=== PATIENT | male | born 1965 | race Caucasian/White ===

== ENCOUNTER 2017-09-19 11:53 | Outpatient (CLI) | payer BC ==
[~2017-09-19] VITALS: Ht 182.9 cm; Wt 90.9 kg
--- NOTE | ~2017-09-19 | HEMODYNAMI ---
PATIENT:EZ SHAIKH MEDICAL RECORD: [id number] : 65 LOCATION:D.CAT ADMISSION DATE: 09/19/17 Generatedon:09/19/201714:40 Patient name: EZ SHAIKH Patient #: [id number] : 1965 Date of study: 09/19/2017 Page: Of Hemodynamic Procedure Report Patient Data Patient Demographics Procedure consent was obtained First Name: EZ Gender: Male Last Name: HAWA : 1965 Middle Initial: AYESHA Age: 52 year(s) Patient #: [id number] Race: SSN: [id number] Additional ID: [id number] Contact details [address]: [address] [place] [address] State: [place] City: [place] Zip code: [address] Admission Admission Data Admission Date: 09/19/2017 Admission Time: 11:53 Arrival Date: 09/19/2017 Arrival Time: 13:30 Admit Source: Other Insurance Payor: Private health insurance Height (in.): 73 BSA: 2.15 (m2) Height (cm.): 185.42 BMI: 26.39 (kg/m2) Weight (lbs.): 200 Weight (kg.): 90.72 Procedure Procedure Types Cath Procedure Diagnostic Procedure C [facility] w/Coronaries Sedation Charges Moderate Sedation up to 15 minutes Procedure Description Procedure Date Procedure Date: 09/19/2017 Procedure Start Time: 14:22 Procedure End Time: 14:39 Procedure Staff Name Function Mervat Pratt RT Monitor Ashley Talavera RT Scrub Blank Osman RN Nurse Ministerio Chavez MD Performing Physician Indication Angina Procedure Data Cath Procedure Fluoroscopy Diagnostic fluoroscopy Total fluoroscopy Time: 2.3 time: 2.3 min min Diagnostic fluoroscopy Total fluoroscopy dose: 561 dose: 561 mGy mGy Contrast Material Contrast Material Type Amount (ml) Isovue 300 77 Entry Location Entry Primary Successful Side Size Upsize Upsize Entry Closure Diggs ccessful Closure Location (Fr) 1 (Fr) 2 (Fr) Remarks Device Remarks Radial Right 6 Fr Mechanical TR band artery Short Compression Estimated blood loss: 10 ml Diagnostic catheters Device Type Used For End Catheter Placement DIAGNOSTIC Andrea 110cm Procedure 5Fr catheter ([id number]) Procedure Complications No complications Procedure Medications Medication Administration Route Dosage Oxygen NC 2 l/min Lidocaine 2% added to field 20 Heparin Flush Bag added to field 2 bags (1000units/500ml NS) 0.9% NaCl 100 ml/hr Radial Cocktail I.A. 1 syringe (Verapomil 2mg/Nitro 400mcg/Heparin 1500units) Versed I.V. 2 mg Fentanyl I.V. 100 mcg Versed I.V. 1 mg Fentanyl I.V. 50 mcg Versed I.V. 1 mg Fentanyl I.V. 50 mcg Hemodynamics Rest BSA: 2.15 (m2) O2 Consumption: Estimated: 251.78 (ml/min) O2 Consumption indexed : Estimated:117.11 (ml/min/m) Heart Rate: 65 (bpm) Pressure Samples Time Site Value (mmHg) Purpose Heart Use Rate(bpm) 14:27 LV 150/-16,8 Snapshot 78 Gradients Valve Time Site Site Mean SEP/DFP Peak To Heart Use 1 2 (mmHg) (sec/min) Peak Rate (mmHg) (bpm) Aortic 14:28 LV AO 106 Snapshots Pre Cath Intra NCS Post Cath Vital Signs Time Heart Resp SPO2 etCO2 NIBP (mmHg) Rhythm Pain Sedation Rate (ipm) (%) (mmHg) Status Level (bpm) 13:53:18 67 12 98 0 137/79(116) NSR 0 (11) 10(A) , No pain 13:57:24 68 18 97 0 124/84(103) NSR 0 (11) 10(A) , No pain 14:01:31 64 24 98 0 125/86(105) NSR 0 (11) 10(A) , No pain 14:05:41 71 16 98 0 118/80(105) NSR 0 (11) 10(A) , No pain 14:09:49 72 19 97 0 126/79(102) NSR 0 (11) 10(A) , No pain 14:13:59 69 16 96 0 113/79(94) NSR 0 (11) 10(A) , No pain 14:18:07 68 15 95 0 124/76(97) NSR 0 (11) 10(A) , No pain 14:22:17 71 19 99 37.1 108/75(95) NSR 0 (11) 9(A) , No pain 14:26:24 84 17 97 35.6 99/65(81) NSR 0 (11) 9(A) , No pain 14:30:26 70 18 95 40.1 116/70(88) NSR 0 (11) 9(A) , No pain 14:34:32 85 18 96 40.2 108/74(102) NSR 0 (11) 10(A) , No pain 14:38:34 78 17 99 36.4 117/81(99) NSR 0 (11) 10(A) , No pain Medications Time Medication Route Dose Verified Delivered Reason Notes Effectiveness by by 14:05:14 Lidocaine 2% added 20ml Ministerio Ministerio for local to vial Scott Chavez MD anesthetic field 14:05:19 Oxygen NC 2 l/min Ministerio Buffie used for Scott Osman RN procedure 14:05:22 Heparin Flush added 2 bags Ministerio Ministerio used for Bag to Scott Chavez MD procedure (1000units/500ml field NS) 14:05:28 0.9% NaCl 100 Ministerio Ministerio ml/hr Scott Chavez MD 14:16:06 Fentanyl I.V. 100 mcg Ministerio Buffie for sedation Scott Osman RN 14:16:56 Versed I.V. 2 mg Ministerio Buffie for sedation Scott Osamn RN 14:20:08 Versed I.V. 1 mg Ministerio Buffie for sedation Scott Osman RN 14:20:12 Fentanyl I.V. 50 mcg Ministerio Buffie for sedation Scott Osman RN 14:25:41 Radial Cocktail I.A. 1 Ministerio Ministerio for (Verapomil syringe Scott Chavez MD vasodilation 2mg/Nitro 400mcg/Heparin 1500units) 14:26:54 Versed I.V. 1 mg Ministerio Buffie for sedation Scott Osman RN 14:26:57 Fentanyl I.V. 50 mcg Ministerio Buffie for sedation Scott Osman RN Procedure Log Time Note 13:36:06 Diagnostic Cath Status : Elective 13:36:24 Indication : Angina 13:36:29 Mervat Pratt RT(R) sent for patient. Start room use. 13:36:32 Time tracking: Regular hours 13:36:36 Plan of Care:Hemodynamics will remain stable., Cardiac rhythm will remain stable., Comfort level will be maintained., Respiratory function will remain adequate., Patient/ family verbilizes understanding of procedure., Procedure tolerated without complication., Recovers from procedure without complications.. 13:36:54 Informed consent obtained and on chart 13:37:05 Patient Height : 73 inches 13:37:08 Patient Weight : 200 lbs 13:37:08 Admit Source: Other 13:37:10 Arrival Date: 09/19/2017 1:30:00 PM 13:37:18 Insurance Payor : Private health insurance 13:49:29 Patient received from Pre/Post Procedure Room to CCL 2 Alert and oriented. Tansferred to table in Supine position. 13:49:30 Warm blankets applied, and farheen hugger turned on for patient comfort. 13:49:31 Correct patient and procedure confirmed by team. 13:49:31 ECG and BP/O2 sat monitors applied to patient. 13:52:14 Vital chart was started 13:52:15 Baseline sample Acquired. 13:52:22 Rhythm: sinus rhythm 13:52:24 Full Disclosure recording started 13:52:28 H&P Date Dictated: 09/19/2017 Within 30 days and on chart., H&P Addendum completed by physician on day of procedure. (MUST COMPLETE FOR ALL OUTPATIENTS). 13:52:29 Pre-procedure instructions explained to patient. 13:52:29 Pre-op teaching completed and patient verbalized understanding. 13:52:30 Family in waiting room. 13:52:32 Patient NPO since Midnight. 13:52:34 Is the patient allergic to Iodine/contrast media? No. 13:52:35 Was the patient premedicated? No 13:52:36 Is patient on blood thinner?No 13:52:38 Patient diabetic? No. 13:52:40 Previous problem with sedation/anesthesia? No ? 13:52:43 Snore? Yes 13:52:44 Sleep apnea? No 13:52:46 Deviated septum? No 13:52:46 Opens mouth fully? Yes 13:52:47 Sticks out tongue? Yes 13:52:49 Airway obstruction? No ? 13:52:51 Dentures? No ? 13:52:55 Pre procedure: right dorsailis pedis pulse 2+ Normal; easily identifiable; not easily obliterated 13:52:58 Pre procedure: left dorsailis pedis pulse 2+ Normal; easily identifiable; not easily obliterated 13:53:01 Patient pain scale 0/10 ?. 13:53:07 IV patent on arrival in left antecubital with 0.9% NaCl at [facility]. 13:53:11 Lab results completed and on chart. 13:53:17 Right Radial & Right Groin area was prepped with chlora-prep and draped in sterile fashion 13:53:18 Alarms reviewed by R. N. 13:53:18 Sharps counted by scrub and verified by R.N. 13:58:24 Baseline sample Acquired. 13:58:30 Physician paged 14:02:35 Physician arrived 14:05:14 Lidocaine 2% 20ml vial added to field was administered by Ministerio Chavez MD; for local anesthetic; 14:05:19 Oxygen 2 l/min NC was administered by Blank Osman RN; used for procedure; 14:05:22 Heparin Flush Bag (1000units/500ml NS) 2 bags added to field was administered by Ministerio Chavez MD; used for procedure; 14:05:28 0.9% NaCl 100 ml/hr was administered by Ministerio Chavez MD; ; 14:07:58 Zero performed for pressure channel P1 14:08:24 Zero performed for pressure channel P1 14:15:55 Physician arrived 14:15:56 --------ALL STOP TIME OUT------ 14:15:57 Final Timeout: patient, procedure, and site verified with staff and physician. All members of the team are in agreement. 14:16:00 Right Radial & Right Groin site verified by team. 14:16:06 Fentanyl 100 mcg I.V. was administered by Blank Osman RN; for sedation; 14:16:10 Physical assessment completed. ASA score P 2 - A patient with mild systemic disease as per Ministerio Chavez MD. 14:16:14 Sedation plan: IV Moderate Sedation Medication:Versed, Fentanyl 14:16:22 Use device set Radial Dx or PCI 14:16:23 ACIST Syringe (80197) opened to sterile field. 14:16:24 Medline Cath Pack ([id number]) opened to sterile field. 14:16:24 Bag Decanter (2001S) opened to sterile field. 14:16:26 SHEATH 6FR Slender ([id number]) opened to sterile field. 14:16:27 DIAGNOSTIC WIRE .035 260cm J wire (239406) opened to sterile field. 14:16:28 ACIST Hand Control (75223) opened to sterile field. 14:16:28 ACIST Manifold (39228) opened to sterile field. 14:16:29 Tegaderm 4 x 4 (1626W) opened to sterile field. 14:16:29 MBrace Wrist Support ([id number]) opened to sterile field. 14:16:31 NEEDLE Cook 21G 4cm Radial (S93453) opened to sterile field. 14:16:36 TR BAND Standard ([id number]) opened to sterile field. 14:16:56 Versed 2 mg I.V. was administered by Blank Osman RN; for sedation; 14:20:08 Versed 1 mg I.V. was administered by Blank Osman RN; for sedation; 14:20:12 Fentanyl 50 mcg I.V. was administered by Blank Osman RN; for sedation; 14:22:49 Procedure started. 14:22:58 Local anesthetic to right radial artery with Lidocaine 2% by Mervat SERRANO(R).INITIAL ACCESS ONLY 14:24:20 A 6 Fr Short sheath was inserted into the Right Radial artery 14:25:41 Radial Cocktail (Verapomil 2mg/Nitro 400mcg/Heparin 1500units) 1 syringe I.A. was administered by Ministerio Chavez MD; for vasodilation; 14:26:07 A DIAGNOSTIC Andrea 110cm 5Fr catheter ([id number]) was advanced over the wire and used for Procedure. 14:26:51 LV gram done using AGUIRRE 14::54 Versed 1 mg I.V. was administered by Blank Osman RN; for sedation; 14:26:57 Fentanyl 50 mcg I.V. was administered by Blank Osman RN; for sedation; 14:28:15 EF : 55 % 14:29:08 RCA angiography performed. 14:30:08 LCA angiography performed. 14:36:04 Catheter removed. 14:36:50 Sheath removed intact; hemostasis achieved with Mechanical Compression to the Right Radial artery. 14:36:54 Procedure ended.(Physican Out) 14:37:19 Fluoroscopy time 02.30 minutes. 14:37:24 Fluoroscopy dose: 561 mGy 14:37:24 Flurop Dose total: 561 14:37:38 Contrast amount:Isovue 300 77ml. 14:37:40 Sharps counted by scrub and verified by R.N. 14:37:43 TR band inflated with 13cc of air. 14:37:45 Insertion/operative site no bleeding no hematoma. 14:37:52 Post right radial artery:stable 14:37:55 Post Procedure Pulses reassessed and unchanged 14:38:02 Post-procedure physical assessment completed. ASA score P 2 - A patient with mild systemic disease as per Ministerio Chavez MD. 14:38:06 Post procedure rhythm: unchanged. 14:38:09 Estimated blood loss: 10 ml 14:38:11 Post procedure instruction explained to patient.Patient verbalizes understanding. 14:38:34 Procedure type changed to Cath procedure, Diagnostic procedure, LHC, LHC w/Coronaries, Sedation Charges, Moderate Sedation up to 15 minutes 14:38:48 Procedure and supply charges have been captured, reviewed, submitted and are correct. 14:39:25 Procedure Complication : No complications 14:39:27 Vital chart was stopped 14:39:28 See physician's report for complete and final results. 14:39:30 Report given to Pre/Post Procedure Room. 14:39:36 Patient transfered to Pre/Post Procedure Room with Stretcher. 14:39:38 Procedure ended. 14:39:38 Full Disclosure recording stopped 14:39:42 End room use (Document Last) Device Usage Item Name Manufacture Quantity Catalog Hospital Part Current Minima l Lot# / Number Charge Number Stock Stock Serial# Code ACIST Acist 1 20456 036346 829542 018250 20 Syringe Italia Online (09976) Systems Inc Medline Cath Cardinal 1 [id number] 816729 21384 446749 5 Ataxion ([id number]) Bag Decanter Microtek 1 228532 33560 955799 5 () Medical Inc. SHEATH 6FR Terumo 1 [id number] 783476 009056 273898 40 Slender ([id number]) DIAGNOSTIC St Andres 1 549718 066778 594102 711480 30 WIRE .035 260cm J wire (876361) ACIST Hand Acist 1 92624 410941 161437 425900 5 Control Medical (19184) Systems Inc ACIST Acist 1 35762 737314 300845 761767 5 Manifold Medical (58962) Systems Inc Tegaderm 4 x 3M 1 1626W 322504 199046 898014 5 4 (1626W) MBrace Wrist Advanced 1 140-0250-00 213979 09715 538683 5 Support Vascular ([id number]) Dynamics NEEDLE Cook Cook Medical 1 H55951 328479 073441 278180 5 21G 4cm Radial (H45771) TR BAND Terumo 1 [id number] 909430 682239 068878 40 Standard ([id number]) DIAGNOSTIC Terumo 1 60-4955 766156 498536 135797 5 Andrea 110cm 5Fr catheter (902462) Signature Audit Sunshine Stage Time Signature Unsigned Intra-Procedure 09/19/2017 Mervat Pratt 2:40:44 PM RT(R) Signatures Monitor : Mervat Pratt Signature : RT Date : Time : [facility] [address] [place] [address]
[2017-09-19] MEDS ORDERED: NEXIUM20 MG PO (12:22)
[2017-09-19] MEDS ORDERED: BAYER CHEWABLE81 MG PO (12:22)
[2017-09-19] MEDS ORDERED: HUMIRA PEN INJ 40M SQ (12:25)
[2017-09-19] MEDS ORDERED: TESTOSTERON200 MG/ML IM (12:26)
[2017-09-19 12:37] VITALS: BP 140/86; Ht 182.9 cm; Wt 90.9 kg
[2017-09-19 12:41] LABS: BASOPHILS 0.2 % (0-2); EOSINOPHILS 0.1 % (0-7); HEMATOCRIT 42.9 % (42.0-54.0); HEMOGLOBIN 14.4 g/dL (13.5-17.5); IMMATURE GRANULOCYTES 0.6 % (0-5); LYMPHOCYTES 15.1 % (15-50); MCH 29.5 pg (26.0-34.0); MCHC 33.6 g/dL (31.0-37.0); MCV 87.9 fL (80.0-100.0); MEAN PLATELET VOLUME 9.8 fL (7.4-10.4); MONOCYTES 6.9 % (2-11); NEUTROPHILS 77.1 % (40-80); PLATELET COUNT 229 10x3/uL (130-400); RBC 4.88 10x6/uL (4.20-6.10); RDW 12.8 % (11.5-14.5); WBC 10.6 10x3/uL (4.8-10.8)
[2017-09-19 13:00] LABS: ANION GAP 14.4 mmol/L (8-16); CALCIUM 8.8 mg/dL (8.5-10.1); CARBON DIOXIDE 25.6 mmol/L (21.0-32.0); CREATININE - SERUM 1.1 mg/dL (0.6-1.3)
[2017-09-21] MEDS ORDERED: XANAX0.5 MG PO (11:20)
== END 2017-09-19 17:11 | disposition home or self-care (01) ==
LOC: D.CATH 11:53
PROVIDERS: Internal Medicine Cardiovascular Disease
DX: I20.9 Angina pectoris, unspecified (principal); I10 Essential (primary) hypertension; Z82.49 Family history of ischemic heart disease and other diseases of the circulatory system; Z01.812 Encounter for preprocedural laboratory examination

== ENCOUNTER 2017-09-22 07:30 | Inpatient (IN) | payer BC ==
[2017-09-21 13:05] LABS: HEMATOCRIT 45.7 % (42.0-54.0); HEMOGLOBIN 15.6 g/dL (13.5-17.5); LYMPHOCYTES 18.4 % (15-50); MCH 29.2 pg (26.0-34.0); MCHC 34.1 g/dL (31.0-37.0); MEAN PLATELET VOLUME 9.7 fL (7.4-10.4); NEUTROPHILS 73.6 % (40-80); PLATELET COUNT 255 10x3/uL (130-400); RBC 5.35 10x6/uL (4.20-6.10); RDW 12.7 % (11.5-14.5); WBC 8.4 10x3/uL (4.8-10.8)
[2017-09-21 13:06] LABS: APTT 26.6 SECONDS (22.8-39.4); INR 1.02 (0.85-1.17)
[2017-09-21 13:16] LABS: APPEARANCE HAZY (CLEAR); BILIRUBIN NEGATIVE (NEGATIVE); COLOR YELLOW (YELLOW); GLUCOSE NEGATIVE (NEGATIVE); KETONE NEGATIVE (NEGATIVE); NITRITE NEGATIVE (NEGATIVE); PROTEIN NEGATIVE (NEGATIVE); SPECIFIC GRAVITY 1.025 (1.005-1.020); UROBILINOGEN NORMAL (NORMAL)
[2017-09-21 13:18] LABS: MCV 85.4 fL (80.0-100.0)
[2017-09-21 13:30] LABS: ALBUMIN 4.1 g/dL (3.4-5.0); ANION GAP 12.3 mmol/L (8-16); BILIRUBIN - TOTAL 0.81 mg/dL (0.2-1.3); CALCIUM 9.4 mg/dL (8.5-10.1); CARBON DIOXIDE 29.6 mmol/L (21.0-32.0); CREATININE - SERUM 1.2 mg/dL (0.6-1.3); POTASSIUM - SERUM 3.9 mmol/L (3.5-5.1); PROTEIN - SERUM 8.4 g/dL (6.4-8.2); T4 THYROXIN - FREE 1.01 ng/dL (0.76-1.46); THYROID STIMULATING HORMONE 2.3 uIU/mL (0.36-3.74); URIC ACID 6.3 mg/dL (2.6-7.2)
[2017-09-22] VITALS (17 sets, daily range): BP systolic 111–148; BP diastolic 72–97; BMI 26.4; BMI 25.3
[~2017-09-22] VITALS: Ht 185.4 cm; Wt 92.1 kg
--- NOTE | ~2017-09-22 | OP ---
PATIENT NAME: EZ SHAIKH MEDICAL RECORD: [id number] :65 [facility] ADMISSION DATE:09/22/17 SURGEON: COLBY MARROQUIN MD DATE OF OPERATION: 09/25/2017 SURGEON: Colby Marroquin MD NURSE EDUCATOR: BRAD [place] OPERATION PERFORMED: Off pump coronary artery bypass graft times 1 (left internal mammary artery to LAD). PREOPERATIVE DIAGNOSES: Coronary artery disease with rest angina, proximal LAD stenosis and mild left main stenosis. POSTOPERATIVE DIAGNOSES: Coronary artery disease with rest angina, proximal LAD stenosis and mild left main stenosis. ANESTHESIA: General endotracheal anesthesia. ESTIMATED BLOOD LOSS: 50 mL with no Cell Saver available for retransfusion. COMPLICATIONS: None. SPECIMENS: None. CONDITION: Stable. DISPOSITION: CV ICU. OPERATIVE FINDINGS: Normal heart, good quality internal mammary artery, the LAD was a 2.0-mm vessel with diffuse disease, good Doppler flow after anastomosis and after reversal of heparin. OPERATIVE INDICATION: Rest angina has developed in a patient with proximal LAD stenosis. PROCEDURE NOTE IN DETAIL: The patient was brought to the operating suite. General anesthesia was obtained. The patient was prepped and draped. Vertical midline incision was made over the sternum and taken down through the subcutaneous tissue and the sternum was divided with a saw. Left hemisternum was elevated. Left pleural cavity was entered and the right pleural cavity had been entered on sawing the chest. Left internal mammary artery and vein were taken down as a pedicle graft. Heparin was given. The vessel was clipped distally and divided and made ready for anastomosis. The sternal retractor was placed. Pericardium was opened. The heart was rotated to the right and an opening was made in the pericardium to allow the internal mammary to pass inside. The inflow to the vessel was occluded with a vessel loop. The vessel was stabilized using the Maquet off pump retraction system. The vessel was opened and a 1.5-mm dilator passed distally to the apex. A standard distal anastomosis was performed. The pedicle was tacked to the heart. Flow was restored. Good Doppler signal was noted. Protamine was given and after this, good Doppler signal again was present. Thorough irrigation was undertaken. Left chest was evacuated and irrigated. Marcaine was used in the OPERATIVE REPORT [id number] EZ SHAIKH left internal mammary artery bed after it was made hemostatic and the sternum was closed with wires after loosely reapproximating the pericardial fat. The patient was stable with the chest closed. Fascia was closed. Subcutaneous tissue was closed. Skin was closed. There were drains in both pleural cavities and one along the left costophrenic angle and one small drain in the mediastinum. Needle and sponge counts were reported as correct. TRANSINT:[id number] Voice Confirmation ID: [id number] DOCUMENT ID: [id number] COLBY MARROQUIN MD at 1057 CC: BRIJESH ANDREW M.D. [id number] DICTATION DATE: 09/25/17 1030 HIGH LIFT DRIVER: 09/25/17 1145 ADM IN [place] [id number] [place] [address]
--- NOTE | ~2017-09-22 | HP ---
PATIENT: EZ SHAIKH MEDICAL RECORD: [id number] ACCOUNT: [id number] [facility] AD[facility]ION DATE: 09/22/17 HISTORY AND PHYSICAL EXAMINATION EZ Klein (52yo, M) ID# [id number]. Date/Time09/21/2017 08:89YEJRA61//1965[facility] Dept.[facility] ClinicProviderPREMA MARROQUIN MDInsuranceMed Primary: [place] Insurance # : [id number] Referring Provider Name : MOOSE YIP Employer Name : UNKNOWN Prescription: CMX - Member is eligible. Chief Complaint Coronary artery disease EVALUATE FOR CABG Patient's Care Team Referring Provider (): MOOSE YIP: [place] [address], , Vitals BP:142/88 sitting R arm 09/21/2017 08:51 am 138/90 sitting L arm 09/21/2017 08:53 amHR:64 09/21/2017 08:53 amHt:6 ft 1 in 09/21/2017 08:53 amWt:192 lbs 09/21/2017 08:54 amBMI:25.3 09/21/2017 08:54 amAllergies Reviewed Allergies NKDAMedications Reviewed Medications Aspir-Low09/19/17 enteredKathy WilsonclonazePAM 0.5 mg kcugon31/01/18 filledCaremarkHumira Pen 40 mg/0.8 mL tntcuxeyyzbn75/05/18 filledCaremarkmetoprolol succinate ER 50 mg tablet,extended release 24 hr08/09/17 filledCaremarkpantoprazole 40 mg tablet,delayed oftvwec72/07/18 filledCaremarkpredniSONE 5 mg /13/18 filledCaremarktestosterone cypionate 200 mg/mL intramuscular oil09/14/17 filledCaremarkProblems Reviewed Problems Coronary arteriosclerosis - Onset: 09/19/2017 Family History Reviewed Family History Father- Hyperlipidemia - Myocardial infarctionPaternal Uncle- HyperlipidemiaPaternal Grandfather- HyperlipidemiaMaternal Grandmother- Myocardial infarctionSocial History Reviewed Social History Cardiology Family history of heart disease?: Y Smoking Status: Never smoker High Cholesterol: N High blood pressure: Y Alcohol intake: None Diet: Regular Surgical History Reviewed Surgical History Other - cardiac cath 2011 Other - bowel surgery Past Medical History Reviewed Past Medical History HISTORY AND PHYSICAL [id number] EZ SHAIKH Chest Pain: Y Coronary Artery Disease: Y Dizzy Spells: Y GERD: Y Hypertension: Y Notes: fatigue Documents for Discussion N/A Screening None recorded. HPI Angina/Chest Pain Reported by patient. Location: chest; left arm; back; epigastrium; radiates to the left arm Quality: pressure; burning Severity: mild; pain level 10/10 Duration: lasts hours; has noted for months; STARTED NOTICING CHEST DISCOMFORT IN JULY Onset/Timing: occurs weekly; nocturnally; multiple times per day Context: exertional; at rest; wakes from sleep; occurs with physical stress Aggravating Factors: worse with a ctivity Associated Symptoms: chest discomfort; decrease in exercise capacity this patient developed exertional angina and dyspnea when moving about 20 pound weight on rollers. The symptoms new over the past month. It was associated with diaphoresis but no palpitations or near syncope. It resolved after 50 minutes rest. Stress test was positive for inferior ischemia and Positive for severe irregular proximal LAD stenosis and mild distal left main stenosis ROS Additionally reports: see chart ROS as noted in the HPI Physical Exam Patient is a 52-year-old male. Constitutional: General Appearance well nourished and developed and healthy-appearing. Level of Distress NAD. Ambulation ambulating normally. Cardiovascular: Apical Impulse not displaced or no thrill. Heart Auscultation normal s1 and s2; no murmurs, rubs, or gallops; and RRR. Arterial Pulses no abdominal aorta bruits, femoral bruits, or popliteal bruits and 2+ bilateral, carotid 2+ bilateral, femoral 2+ bilateral, popliteal 2+ bilateral, and dorsalis p logan 2+ bilateral. Edema no edema or varicosities. Lungs: Repiratory Effort no dyspnea. Percussion no hyperresonance or dullness or flatness. Auscultation no wheezing, rhonchi, or rales / crackles and breathing sounds normal, good air movement, and CTA except as noted. Abdomen: Bowl Sounds normal. Inspection and Palpation no tenderness, guarding, masses, or rebound tenderness and soft and non-distended; healed scar from previous small bowel resection. Liver non-tender and no hepatomegaly. Spleen non-tender and no splenomegaly. Hernia none palpable. Musculoskeletal System: Gait And Stance normal gait and stance. Digits and Nails normal nails and no cyanosis. HISTORY AND PHYSICAL [id number] EZ SHAIKH Neurologic: Cranial Nerves grossly intact. Reflexes DTRs 2+ bilaterally throughout. Sensation grossly intact. Lymph Nodes: Lymph Nodes no cervical LAD, supraclavicular LAD, axillary LAD, or inguinal LAD. Eyes: Lids and Conjunctivae no discharge or pallor and non-injected. Pupils PERRLA. Cornea grossly intact. EOM EOMI. Lens clear. Sclerae non-icteric. Neck: Neck no masses, enlarged lymph nodes, or carotid bruits and supple and trachea midline. Thyroid no enlargement or nodules and non-tender. Skin: Inspection and Palpation no rash, lesions, ulcers, jaundice, or abnormal nevi. Assessment / Plan 1. Coronary arteriosclerosis in [place] artery I25.110: Atherosclerotic heart disease of [place] coronary artery with unstable angina pectoris Discussion Notes we discussed the rationale for surgery, the alte rnatives, the benefits, and the risks. His is present for the discussion. He understands the risks and the need for lifestyle changes including cessation of oral tobacco going forward regular exercise and cholesterol control. He gives consent for ope ration. Plan off pump coronary artery bypass graft on 09/22/2017 PREMA MARROQUIN MD at 1415 CC: [id number] DICTATION DATE: 09/21/17 0830 NURSING SERVICES MANAGER: LESTER 09/21/17 1528 ADM IN [place] [id number] [place] [id number]
--- NOTE | ~2017-09-22 | TEE ---
PATIENT:EZ SHAIKH MEDICAL RECORD: [id number] LOCATION:[facility] AGE OF PATIENT: 52 ADMISSION DATE: 09/22/17 SEX: M REFERRING PHYSICIAN: INTERPRETING PHYSICIAN: JORGE HAYWARD MD TRANSESOPHAGEAL ECHOCARDIOGRAM Date: MIMI CHARGE Y INDICATIONS: CABG PREMEDICATIONS: PATIENT'S RESPONSE PROCEDURE DOPPLER MEASUREMENTS: LVIT LA PA RA LVOT RVOT Asc. Ao AV Gradient Peak AV Mean AV Area MV Gradient Peak MV Mean MV Area INTERPRETATION: LVd: 3.7 cm LVs: 2.8 cm Doppler: 2-D: COLOR FLOW DOPPLER NORMAL SALINE STUDY: MISCELLANOUS: DIAGNOSIS: PLAN: Parking Meter Servicer:Speedy Chavez Supervisor [place]: Dillon APPLE COMMENTS: DATE OF SERVICE: 09/25/2017 PROCEDURE: Transesophageal echo evaluation of valvular structures during bypass surgery. FINDINGS: 1. Left ventricular chamber size is within normal limits. Left ventricular systolic function is moderately reduced, overall ejection fraction 30%. 2. Left atrium, right atrium and right ventricular chamber sizes are within TRANSESOPHAGEAL ECHOCARDIOGRAM REPORT [id number] EZ SHAIKH normal limits. 3. Valvular structures have normal structure and motion. 4. Doppler interrogation only reveals trace mitral regurgitation. No other valvular insufficiency or stenosis. 5. No evidence of pericardial effusion or left ventricular thrombus. TRANSINT:[id number] Voice Confirmation ID: [id number] DOCUMENT ID: [id number] at 1056 CC: [id number] DICTATION DATE: 09/26/17 0846 INSULATION WORKER INTERIOR SURFACE: 09/26/17 1321 DIS IN 09/27/17 [place] [id number] [place] [id number]
[~2017-09-22 07:30] MED LIST: BAYER CHEWABLE81 MG PO; HUMIRA PEN INJ 40M SQ; NEXIUM20 MG PO; TESTOSTERON200 MG/ML IM; XANAX0.5 MG PO
[2017-09-22 13:22] LABS: HEMATOCRIT 44.1 % (42.0-54.0); MCH 29.9 pg (26.0-34.0); MEAN PLATELET VOLUME 9.9 fL (7.4-10.4); RBC 5.02 10x6/uL (4.20-6.10); RDW 13.1 % (11.5-14.5); WBC 9.7 10x3/uL (4.8-10.8)
[2017-09-22 13:34] LABS: MCV 87.8 fL (80.0-100.0)
[2017-09-22 13:43] LABS: APTT 26.4 SECONDS (22.8-39.4); INR 0.97 (0.85-1.17); PROTIME 12.5 SECONDS (11.6-15.0)
[2017-09-23] VITALS (13 sets, daily range): BP systolic 90–137; BP diastolic 54–86
[2017-09-23 00:32] LABS: HEMATOCRIT 40.7 % (42.0-54.0); HEMOGLOBIN 13.9 g/dL (13.5-17.5); MCHC 34.2 g/dL (31.0-37.0); MCV 87.9 fL (80.0-100.0); RBC 4.63 10x6/uL (4.20-6.10); RDW 13.2 % (11.5-14.5); WBC 8.4 10x3/uL (4.8-10.8)
[2017-09-24] VITALS (16 sets, daily range): BP systolic 85–148; BP diastolic 46–86
[2017-09-24 00:38] LABS: HEMATOCRIT 40.1 % (42.0-54.0); HEMOGLOBIN 13.2 g/dL (13.5-17.5); MCH 28.9 pg (26.0-34.0); MCHC 32.9 g/dL (31.0-37.0); MCV 87.7 fL (80.0-100.0); MEAN PLATELET VOLUME 10.1 fL (7.4-10.4); RBC 4.57 10x6/uL (4.20-6.10); RDW 12.9 % (11.5-14.5); WBC 7.9 10x3/uL (4.8-10.8)
[2017-09-25] VITALS (46 sets, daily range): BP systolic 88–137; BP diastolic 47–84; Ht 185.4 cm; Wt 92.1 kg
[2017-09-25 03:48] LABS: BASOPHILS 0.2 % (0-2); EOSINOPHILS 1.1 % (0-7); HEMATOCRIT 41.2 % (42.0-54.0); HEMOGLOBIN 13.8 g/dL (13.5-17.5); IMMATURE GRANULOCYTES 0.5 % (0-5); LYMPHOCYTES 31.4 % (15-50); MCH 29.3 pg (26.0-34.0); MCHC 33.5 g/dL (31.0-37.0); MCV 87.5 fL (80.0-100.0); MEAN PLATELET VOLUME 10.2 fL (7.4-10.4); MONOCYTES 9.4 % (2-11); NEUTROPHILS 57.4 % (40-80); PLATELET COUNT 206 10x3/uL (130-400); RBC 4.71 10x6/uL (4.20-6.10); RDW 13.1 % (11.5-14.5); WBC 8.5 10x3/uL (4.8-10.8)
[2017-09-25 03:59] LABS: CALCIUM 8.6 mg/dL (8.5-10.1); CARBON DIOXIDE 28.2 mmol/L (21.0-32.0); CREATININE - SERUM 1.2 mg/dL (0.6-1.3); POTASSIUM - SERUM 4.2 mmol/L (3.5-5.1)
[2017-09-26] VITALS (25 sets, daily range): BP systolic 102–131; BP diastolic 58–77
[2017-09-26 00:36] LABS: MCH 29.5 pg (26.0-34.0); MCHC 33.3 g/dL (31.0-37.0); MCV 88.6 fL (80.0-100.0); MEAN PLATELET VOLUME 9.8 fL (7.4-10.4); RBC 4.4 10x6/uL (4.20-6.10); RDW 13.3 % (11.5-14.5)
[2017-09-26 00:41] LABS: WBC 16.7 10x3/uL (4.8-10.8)
[2017-09-26 06:41] LABS: ALBUMIN 2.8 g/dL (3.4-5.0); ALKALINE PHOSPHATASE 72 U/L (46-116); ALT (SGPT) 40 U/L (10-68); BILIRUBIN - TOTAL 1.14 mg/dL (0.2-1.3); CALC OSMOLALITY 276 mosm/kg (275-300); CALCIUM 8.2 mg/dL (8.5-10.1); CARBON DIOXIDE 27.7 mmol/L (21.0-32.0); CHLORIDE - SERUM 102 mmol/L (98-107); GLUCOSE 124 mg/dL (74-106); POTASSIUM - SERUM 4.5 mmol/L (3.5-5.1); PROTEIN - SERUM 6.3 g/dL (6.4-8.2); SODIUM 139 mmol/L (136-145); eGFR NON AFRICAN AMERICAN 83 mL/min (90-120)
[2017-09-26 06:48] LABS: UREA NITROGEN 8 mg/dL (7-18)
[2017-09-26 07:22] LABS: HEMATOCRIT 46.6 % (42.0-54.0); HEMOGLOBIN 13.1 g/dL (13.5-17.5); MCH 31.3 pg (26.0-34.0); MCHC 28.1 g/dL (31.0-37.0); MCV 111.5 fL (80.0-100.0); MEAN PLATELET VOLUME 14.5 fL (7.4-10.4); RBC 4.18 10x6/uL (4.20-6.10); RDW 19.1 % (11.5-14.5); WBC 16.4 10x3/uL (4.8-10.8)
[2017-09-27] VITALS (16 sets, daily range): BP systolic 99–136; BP diastolic 34–74
[2017-09-27 05:20] LABS: HEMOGLOBIN 13.5 g/dL (13.5-17.5); MCH 29.4 pg (26.0-34.0); MCHC 32.9 g/dL (31.0-37.0); MEAN PLATELET VOLUME 10.6 fL (7.4-10.4); RBC 4.59 10x6/uL (4.20-6.10); RDW 13.5 % (11.5-14.5); WBC 13.8 10x3/uL (4.8-10.8)
[2017-09-27 05:26] LABS: MCV 89.3 fL (80.0-100.0)
[2017-09-27 05:46] LABS: ALBUMIN 2.7 g/dL (3.4-5.0); ANION GAP 9.1 mmol/L (8-16); BILIRUBIN - TOTAL 1.06 mg/dL (0.2-1.3); CALCIUM 8.4 mg/dL (8.5-10.1); CARBON DIOXIDE 33.1 mmol/L (21.0-32.0); CREATININE - SERUM 1.1 mg/dL (0.6-1.3); POTASSIUM - SERUM 4.2 mmol/L (3.5-5.1); PROTEIN - SERUM 6.9 g/dL (6.4-8.2)
[2017-09-27] MEDS ORDERED: NICODERM C1 PATCH .1 TRANSDERM (11:00)
[2017-09-27] MEDS ORDERED: COLACE100 MG PO (11:01)
[2017-09-27] MEDS ORDERED: TOPROL XL25 MG PO (11:02)
[2017-09-27] MEDS ORDERED: HYDROCODON-ACE1 EAC7 PO (11:03)
== END 2017-09-27 15:45 | disposition home or self-care (01) | DRG 236 ==
LOC: D.SDCHOLD 07:30 → D.CVICU 08:35 → D.SDCHOLD 08:35 → D.CVICU 12:50
PROVIDERS: Thoracic Surgery (Cardiothoracic Vascular Surgery)
PROC: 02100A9 Bypass Coronary Artery, One Artery from Left Internal Mammary with Autologous Arterial Tissue, Open Approach (ICD-10-PCS; principal; 2017-09-25 07:30)
DX: I25.118 Atherosclerotic heart disease of native coronary artery with other forms of angina pectoris (principal); I31.9 Disease of pericardium, unspecified; I10 Essential (primary) hypertension; K21.9 Gastro-esophageal reflux disease without esophagitis; F17.200 Nicotine dependence, unspecified, uncomplicated

== ENCOUNTER → 2017-10-11 09:56 | Outpatient (CLI) | payer BC ==
[2017-09-25 09:46] VITALS: BMI 25.4
[2017-10-11 09:51] LABS: HEMATOCRIT 38.4 % (42.0-54.0); HEMOGLOBIN 12.7 g/dL (13.5-17.5); MCH 29.1 pg (26.0-34.0); MCHC 33.1 g/dL (31.0-37.0); MCV 88.1 fL (80.0-100.0); MEAN PLATELET VOLUME 9.1 fL (7.4-10.4); RBC 4.36 10x6/uL (4.20-6.10); RDW 12.7 % (11.5-14.5); WBC 9.8 10x3/uL (4.8-10.8)
[~2017-10-11 09:56] MED LIST changes: +COLACE100 MG PO; +HYDROCODON-ACE1 EAC7 PO; +ISOSORBIDE MONO30 M1 PO; +LIPITOR10 MG PO; +NICODERM C1 PATCH .1 TRANSDERM; +TOPROL XL25 MG PO
[2017-10-11 09:58] LABS: ALBUMIN 3.2 g/dL (3.4-5.0); ANION GAP 14.8 mmol/L (8-16); BILIRUBIN - TOTAL 0.48 mg/dL (0.2-1.3); CARBON DIOXIDE 27.3 mmol/L (21.0-32.0); CREATININE - SERUM 1.1 mg/dL (0.6-1.3); POTASSIUM - SERUM 4.1 mmol/L (3.5-5.1); PROTEIN - SERUM 8.1 g/dL (6.4-8.2)
== END | disposition home or self-care (01) ==
LOC: D.RAD 08:59
PROVIDERS: Thoracic Surgery (Cardiothoracic Vascular Surgery)
DX: Z95.1 Presence of aortocoronary bypass graft (principal); I25.810 Atherosclerosis of coronary artery bypass graft(s) without angina pectoris; J90 Pleural effusion, not elsewhere classified; D64.9 Anemia, unspecified

== ENCOUNTER → 2017-10-24 13:34 | Outpatient (CLI) | payer BC ==
[2017-09-25 09:46] VITALS: BMI 25.4
== END | disposition home or self-care (01) ==
LOC: D.US 13:34
DX: M79.604 Pain in right leg (principal)

== ENCOUNTER 2017-12-07 06:28 | Outpatient (CLI) | payer BC ==
[~2017-12-07] VITALS: Ht 185.4 cm; Wt 89.1 kg
--- NOTE | ~2017-12-07 | HEMODYNAMI ---
PATIENT:EZ SHAIKH MEDICAL RECORD: [id number] : 65 LOCATION:[facility] ADMISSION DATE: 12/07/17 Generatedon:12/07/20179:50 Patient name: EZ SHAIKH Patient #: [id number] : 1965 Date of study: 12/07/2017 Page: Of Hemodynamic Procedure Report Patient Data Patient Demographics Procedure consent was obtained First Name: EZ Gender: Male Last Name: HAWA : 1965 [facility] Initial: AYESHA Age: 52 year(s) Patient #: [id number] Race: SSN: [id number] Additional ID: [id number] Contact details Address: [address] [place] [address] State: [place] City: [place] Zip code: [address] Admission Admission Data Admission Date: 12/07/2017 Admission Time: 6:28 Procedure Procedure Types Cath Procedure Diagnostic Procedure LHC LHC w/Coronaries w/Grafts Sedation Charges Moderate Sedation up to 15 minutes Procedure Description Procedure Date Procedure Date: 12/07/2017 Procedure Start Time: 9:33 Procedure End Time: 9:47 Procedure Staff Name Function Ministerio Chavez MD Performing Physician Ashley Talavera RT Monitor Gregorio Lima RT Scrub Federico Maher RN Nurse Procedure Data Cath Procedure Fluoroscopy Diagnostic fluoroscopy Total fluoroscopy Time: 2.3 time: 2.3 min min Diagnostic fluoroscopy Total fluoroscopy dose: 401 dose: 401 mGy mGy Contrast Material Contrast Material Type Amount (ml) Isovue 300 75 Entry Location Entry Primary Successful Side Size Upsize Upsize Entry Closure Succes sful Closure Location (Fr) 1 (Fr) 2 (Fr) Remarks Device Remarks Femoral Right 5 Fr Exoseal artery Estimated blood loss: 5 ml Diagnostic catheters Device Type Used For End Catheter Placement MULTIPACK JL 4.0 5Fr Left Coronary catheter Angiography MULTIPACK 3DRC 5Fr Right Coronary catheter Angiography DIAGNOSTIC IM 5Fr Multi-vessel catheter ([id number]) Angiography MULTIPACK Pigtail 5 Fr LV Angiography catheter Procedure Complications No complications Procedure Medications Medication Administration Route Dosage 0.9% NaCl I.V. 100 ml/hr Oxygen etCO2 Nasal cannula 2 l/min Heparin Flush Bag added to field 2 bags (1000units/500ml NS) Lidocaine 2% added to field 20 Versed I.V. 2 mg Fentanyl I.V. 100 mcg Versed I.V. 2 mg Fentanyl I.V. 100 mcg Hemodynamics Rest Heart Rate: 77 (bpm) Pressure Samples Time Site Value (mmHg) Purpose Heart Use Rate(bpm) 9:43 LV 127/-11,23 Snapshot 86 9:44 AO 115/68(91) Pullback 83 9:44 LV 136/-10,19 Pullback 83 Gradients Valve Time Site 1 Site 2 Mean SEP/DFP Peak To Heart Use (mmHg) (sec/min) Peak Rate (mmHg) (bpm) Aortic 9:44 LV AO 18 24 21 83 136/-10,19 115/68(91) Calculations Valve P-P Mean Valve Index Valve Source Name Gradient Area Flow (cm2) Aortic 21 18 21 18 Snapshots Pre Cath Intra NCS Post Cath Vital Signs Time Heart Resp SPO2 etCO2 NIBP (mmHg) Rhythm Pain Sedation Rate (ipm) (%) (mmHg) Status Level (bpm) 9:09:24 82 13 100 36.8 132/99(112) NSR 0 (11) 10(A) , No pain 9:13:59 91 15 98 35.3 131/88(105) NSR 0 (11) 10(A) , No pain 9:18:31 88 17 100 26.2 138/93(110) NSR 0 (11) 10(A) , No pain 9:23:10 73 18 100 36.8 131/79(95) NSR 0 (11) 10(A) , No pain 9:27:49 88 14 98 24.7 130/76(100) NSR 0 (11) 10(A) , No pain 9:32:27 87 12 92 36.8 140/77(99) NSR 0 (11) 10(A) , No pain 9:37:08 78 20 97 18.7 122/75(98) NSR 0 (11) 10(A) , No pain 9:42:09 87 8 95 36.8 141/92(107) NSR 0 (11) 10(A) , No pain 9:46:45 87 7 98 41.3 116/89(102) NSR 0 (11) 10(A) , No pain Medications Time Medication Route Dose Verified Delivered Reason Notes Effe ctiveness by by 9:08:39 0.9% NaCl I.V. 100 Federico Federico Per ml/hr Nika Maher physician RN RN 9:08:49 Oxygen etCO2 2 Federico Federico Per Nasal l/min Nika Maher physician cannula RN RN 9:09:20 Heparin Flush added 2 Federico Federico used for Bag to bags Lorigan Lorigan procedure (1000units/500ml field RN RN NS) 9:09:34 Lidocaine 2% added 20ml Federico Federico for local to vial Lorigan Lorigan anesthetic field RN RN 9:28:11 Versed I.V. 2 mg Federico Federico for Lorigan Lorigan sedation RN RN 9:28:19 Fentanyl I.V. 100 Federico Federico for mcg Lorigan Lorigan sedation RN RN 9:35:00 Versed I.V. 2 mg Federico Federico for Lorigan Lorigan sedation RN RN 9:35:39 Fentanyl I.V. 100 Federico Federico for mcg Lorigan Lorigan sedation RN dental secretary Log Time Note 8:50:48 Federico Maher RN sent for patient. Start room use. 9:01:22 Informed consent obtained and on chart 9:01:26 Diagnostic Cath Status : Elective 9:01:59 Time tracking: Regular hours (M-F 7:00 - 5:00) 9:02:04 Plan of Care:Hemodynamics will remain stable., Cardiac rhythm will remain stable., Comfort level will be maintained., Respiratory function will remain adequate., Patient/ family verbilizes understanding of procedure., Procedure tolerated without complication., Recovers from procedure without complications.. 9:02:08 Patient received from Pre/Post Procedure Room to CCL 1 Alert and oriented. Tansferred to table in Supine position. 9:02:09 Warm blankets applied, and farheen hugger turned on for patient comfort. 9:02:10 Correct patient and procedure confirmed by team. 9:02:10 ECG and BP/O2 sat monitors applied to patient. 9:08:38 Vital chart was started 9:08:39 0.9% NaCl 100 ml/hr I.V. was administered by Federico Maher RN; Per physician; 9:08:42 Baseline sample Acquired. 9:08:47 Rhythm: sinus rhythm 9:08:49 Oxygen 2 l/min etCO2 Nasal cannula was administered by Federico Maher RN; Per physician; 9:09:00 Full Disclosure recording started 9:09:04 H&P Date Dictated: 12/07/2017 Within 30 days and on chart., H&P Addendum completed by physician on day of procedure. (MUST COMPLETE FOR ALL OUTPATIENTS). 9:09:05 Pre-procedure instructions explained to patient. 9:09:06 Pre-op teaching completed and patient verbalized understanding. 9:09:08 Family in waiting room. 9:09:13 Patient NPO since Midnight. 9:09:14 Is the patient allergic to Iodine/contrast media? No. 9:09:15 Was the patient premedicated? No 9:09:19 Is patient on blood thinner?No 9:09:20 Heparin Flush Bag (1000units/500ml NS) 2 bags added to field was administered by Federico Maher RN; used for procedure; 9:09:20 Patient diabetic? No. 9:09:22 Previous problem with sedation/anesthesia? No ? 9:09:24 Snore? Yes 9:09:25 Sleep apnea? No 9:09:26 Deviated septum? No 9:09:27 Opens mouth fully? Yes 9:09:28 Sticks out tongue? Yes 9:09:31 Airway obstruction? No ? 9:09:34 Lidocaine 2% 20ml vial added to field was administered by Federico Maher RN; for local anesthetic; 9:09:34 Dentures? No ? 9:09:38 Pre procedure: right dorsailis pedis pulse 1+ Palpable, but thready & weak; easily obliterated 9:09:40 Pre procedure: left dorsailis pedis pulse 1+ Palpable, but thready & weak; easily obliterated 9:09:42 Patient pain scale 0/10 ?. 9:09:49 IV patent on arrival in left forearm with 0.9% NaCl at KVO. 9:09:52 Lab results completed and on chart. 9:09:55 Right groin area was prepped with chlora-prep and draped in sterile fashion 9:09:57 Alarms reviewed by RTanya N. 9:09:58 Sharps counted by scrub and verified by R.N. 9:18:06 Use device set Femoral Dx 9:18:07 ACIST Syringe (99086) opened to sterile field. 9:18:08 Bag Decanter (2002S) opened to sterile field. 9:18:08 Medline Cath Pack ([id number]) opened to sterile field. 9:18:09 DIAGNOSTIC WIRE .035 260cm J wire ([id number]) opened to sterile field. 9:18:10 ACIST Hand Control (72311) opened to sterile field. 9:18:10 ACIST Manifold (56168) opened to sterile field. 9:18:11 DIAGNOSTIC Multipack 5Fr catheter set ([id number]) opened to sterile field. 9:18:11 Tegaderm 4 x 4 (1626W) opened to sterile field. 9:18:18 SHEATH Prelude 5Fr 0.035 (IVP-2I-14-035) opened to sterile field. 9:24:15 Physician arrived 9:24:16 --------ALL STOP TIME OUT------ 9:24:16 Final Timeout: patient, procedure, and site verified with staff and physician. All members of the team are in agreement. 9:24:22 Right groin site verified by team. 9:24:26 Physical assessment completed. ASA score P 2 - A patient with mild systemic disease as per Ministerio Chavez MD. 9:24:30 Sedation plan: IV Moderate Sedation Medication:Versed, Fentanyl 9:25:09 Procedure started. 9:27:42 Zero performed for pressure channel P1 9:28:11 Versed 2 mg I.V. was administered by Federico Maher RN; for sedation; 9:28:19 Fentanyl 100 mcg I.V. was administered by Federico Maher RN; for sedation; 9:33:23 Local anesthetic to right femoral artery with Lidocaine 2% by Ministerio Chavez MD.INITIAL ACCESS ONLY 9:34:56 A 5 Fr sheath was inserted into the Right Femoral artery 9:35:00 Versed 2 mg I.V. was administered by Federico Maher RN; for sedation; 9:35:14 A MULTIPACK JL 4.0 5Fr catheter was advanced over the wire and used for Left Coronary Angiography. 9:35:39 Fentanyl 100 mcg I.V. was administered by Federico Maher RN; for sedation; 9:36:05 LCA angiography performed. 9:36:08 Injector settings: Ml/sec: 3, Volume: 6, 9:38:03 Catheter removed. 9:38:10 A MULTIPACK 3DRC 5Fr catheter was advanced over the wire and used for Right Coronary Angiography. 9:39:14 RCA angiography performed. 9:39:17 Injector settings: Ml/sec: 3, Volume: 6, 9:41:06 Catheter removed. 9:41:18 A DIAGNOSTIC IM 5Fr catheter ([id number]) was advanced over the wire and used for Multi-vessel Angiography. 9:41:45 PARSONS angiography performed. 9:41:49 Injector settings: Ml/sec: 3, Volume: 6, 9:41:51 Catheter removed. 9:42:00 A MULTIPACK Pigtail 5 Fr catheter was advanced over the wire and used for LV Angiography. 9:43:55 LV hemodynamics recorded. 9:43:56 LV gram done using AGUIRRE 9:43:59 Injector settings: Ml/sec: 5, Volume: 15, 9:44:11 EF : 55 % 9:44:27 Catheter removed. 9:44:52 EXOSEAL 5Fr (EX500) opened to sterile field. 9:45:08 Sheath removed intact; hemostasis achieved with Exoseal to the Right Femoral artery. 9:45:13 Procedure ended.(Physican Out) 9:45:54 Fluoroscopy time 02.30 minutes. 9:45:58 Flurop Dose total: 401 9:45:58 Fluoroscopy dose: 401 mGy 9:46:05 Contrast amount:Isovue 300 75ml. 9:46:07 Sharps counted by scrub and verified by R.N. 9:46:10 Insertion/operative site no bleeding no hematoma. 9:46:13 Post-op/insertion site Right Femoral artery dressed using a 4 x 4 and Tegaderm. 9:46:16 Post right femoral artery:stable 9:46:17 Post Procedure Pulses reassessed and unchanged 9:46:20 Post procedure rhythm: unchanged. 9:46:24 Estimated blood loss: 5 ml 9:46:28 Post procedure instruction explained to patient.Patient verbalizes understanding. 9:46:29 Patient needs reinforcement of post procedure teaching. 9:47:21 Procedure type changed to Cath procedure, Diagnostic procedure, LHC, LHC w/Coronaries w/Grafts, Sedation Charges, Moderate Sedation up to 15 minutes 9:47:22 Procedure and supply charges have been captured, reviewed, submitted and are correct. 9:47:27 Procedure Complication : No complications 9:47:30 Vital chart was stopped 9:47:30 See physician's report for complete and final results. 9:47:33 Report given to Pre/Post Procedure Room. 9:47:36 Patient transfered to Pre/Post Procedure Room with Stretcher. 9:47:40 Procedure ended. 9:47:40 Full Disclosure recording stopped 9:47:45 End room use (Document Last) Device Usage Item Name Manufacture Quantity Catalog Number Hospital Part Current M inimal Lot# / Charge Number Stock Stock Serial# Code ACIST Syringe Acist 1 59229 642356 120989 416385 2 0 (16462) [employer] Bag Decanter Microtek 1 2001S 172110 27615 052162 5 () Medical Inc. Medline Cath Cardinal 1 [id number] 897233 51333 201667 5 Pack Health ([id number]) DIAGNOSTIC WIRE [facility] [place] 1 356739 447793 858345 206994 3 0 .035 260cm J wire (275177) ACIST Hand Acist 1 44875 126359 579596 730726 5 Control (69738) [employer] ACIST Manifold Acist 1 23321 085779 578175 154336 5 (42300) [employer] DIAGNOSTIC Cardinal 1 HL0564 389836 20541 754620 3 0 Multipack 5Fr Health catheter set ([id number]) Tegaderm 4 x 4 3M 1 1626W 619351 936836 515163 5 (1626W) SHEATH Prelude Merit 1 [id number] 982316 051031 783771 5 5Fr 0.035 Medical ([id number]) MULTIPACK JL Cardinal 1 [id number] 5 4.0 5Fr Health catheter MULTIPACK 3DRC Cardinal 1 [id number] 5 5Fr catheter Health DIAGNOSTIC IM Cardinal 1 [id number] 201711 013477 127604 5 5Fr catheter Health ([id number]) MULTIPACK Cardinal 1 [id number] 5 Pigtail 5 Fr Health catheter EXOSEAL 5Fr Cardinal 1 EX500 609918 095867 558868 1 0 (EX500) Health Signature Audit [place] Stage Time Signature Unsigned Intra-Procedure 12/07/2017 Ashley Talavera 9:50:43 AM RT(R) Signatures Monitor : Ashley Talavera RT Signature : Date : Time : [place] [id number] [place] [address]
[~2017-12-07 06:28] MED LIST changes: -ISOSORBIDE MONO30 M1 PO; -LIPITOR10 MG PO
[2017-12-07] MEDS ORDERED: LIPITOR10 MG PO (07:09)
[2017-12-07 07:17] VITALS: BP 140/91; Ht 185.4 cm; Wt 89.1 kg
[2017-12-07 07:21] LABS: BASOPHILS 0.3 % (0-2); EOSINOPHILS 1.2 % (0-7); HEMATOCRIT 44.9 % (42.0-54.0); HEMOGLOBIN 14.5 g/dL (13.5-17.5); IMMATURE GRANULOCYTES 0.1 % (0-5); LYMPHOCYTES 20.4 % (15-50); MCH 27.6 pg (26.0-34.0); MCHC 32.3 g/dL (31.0-37.0); MCV 85.5 fL (80.0-100.0); MEAN PLATELET VOLUME 10.1 fL (7.4-10.4); MONOCYTES 8.3 % (2-11); NEUTROPHILS 69.7 % (40-80); RBC 5.25 10x6/uL (4.20-6.10); RDW 13.1 % (11.5-14.5); WBC 7.4 10x3/uL (4.8-10.8)
[2017-12-07 07:28] LABS: PLATELET COUNT 257 10x3/uL (130-400)
[2017-12-07 07:34] LABS: CALC OSMOLALITY 277 mosm/kg (275-300); CARBON DIOXIDE 29.5 mmol/L (21.0-32.0); CHLORIDE - SERUM 104 mmol/L (98-107); CREATININE - SERUM 0.9 mg/dL (0.6-1.3); GLUCOSE 104 mg/dL (74-106); POTASSIUM - SERUM 4.6 mmol/L (3.5-5.1); SODIUM 139 mmol/L (136-145); UREA NITROGEN 12 mg/dL (7-18); eGFR NON AFRICAN AMERICAN > 90 mL/min (90-120)
[2017-12-07] MEDS ORDERED: ISOSORBIDE MONO30 M1 PO (10:09)
== END 2017-12-07 12:50 | disposition home or self-care (01) ==
LOC: D.CATH 06:28
PROVIDERS: Internal Medicine Cardiovascular Disease
DX: I25.119 Atherosclerotic heart disease of native coronary artery with unspecified angina pectoris (principal); I10 Essential (primary) hypertension; Z01.812 Encounter for preprocedural laboratory examination